=== PATIENT | female | born 1995 | race Caucasian/White ===

== ENCOUNTER 2022-06-18 11:50 | Day surgery (SDC) | payer BC ==
[2022-06-18] MEDS ORDERED: Calcium Gluc 4.6 MEQ/10 ML (100 MG/ML) SLOW IVP PRN (12:39)
[2022-06-18] MEDS ORDERED: Magnesium Sulfate 20 gm/500 ml 20 GM/500 ML BAG IVPB SCH (12:45)
[2022-06-18 13:12] VITALS: BMI 25.4
[2022-06-18 16:01] LABS: SARS-CoV-2 NAA Rapid Test Not Detected (NotDetected)
== END 2022-06-18 17:20 | disposition short-term general hospital (02) ==
LOC: CSHLD/OP 11:50
PROVIDERS: ATTEND Student in an Organized Health Care Education/Training Program
DX: O34.32 Maternal care for cervical incompetence, second trimester (principal); O99.282 Endocrine, nutritional and metabolic diseases complicating pregnancy, second trimester; E03.9 Hypothyroidism, unspecified; O99.342 Other mental disorders complicating pregnancy, second trimester; F41.9 Anxiety disorder, unspecified; Z3A.24 24 weeks gestation of pregnancy; Z79.899 Other long term (current) drug therapy; Z20.822 Contact with and (suspected) exposure to COVID-19
CPT/HCPCS: 36415; 59025; 87081; 96361; 96365; 96366; 99283; J3475; U0002

== ENCOUNTER 2022-09-07 19:33 | Day surgery (SDC) | payer BC ==
[2022-09-07 20:00] VITALS: BMI 29.3
[2022-09-07] MEDS ORDERED: hydrALAZINE 20 MG/ML VIAL SLOW IVP PRN (20:58)
[2022-09-07 21:30] LABS: Bilirubin Neg (Negative); Blood, Urine Negative (Negative); Clarity Clear (Clear); Glucose, Urine (Dipstick) Normal (Negative); Ketone, Urine 15 mg/dL (Negative); Leukocyte 25 (Negative); Nitrite Negative (Negative); Protein, Urine (Dipstick) Negative (Neg-Trace); Urobilinogen Normal mg/dL (Less than 2); pH, Urine 6.5 (5.0-9.0)
[2022-09-07 21:41] LABS: Bacteria/HPF Rare-Few HPF (None Seen); RBC/HPF 0-3 HPF (0-3); Squamous Epithelial 0-3 HPF (0-3); WBC/HPF 0-3 HPF (0-3)
[2022-09-07] MEDS ORDERED: Acetaminophen 500 MG TAB PO SCH (22:30)
== END 2022-09-08 00:05 | disposition home or self-care (01) ==
LOC: CSHLD/OP 19:33
PROVIDERS: ATTEND Student in an Organized Health Care Education/Training Program
DX: O26.893 Other specified pregnancy related conditions, third trimester (principal); R10.2 Pelvic and perineal pain; M54.50 Low back pain, unspecified; O30.043 Twin pregnancy, dichorionic/diamniotic, third trimester; O99.283 Endocrine, nutritional and metabolic diseases complicating pregnancy, third trimester; E03.9 Hypothyroidism, unspecified; O99.343 Other mental disorders complicating pregnancy, third trimester; F41.9 Anxiety disorder, unspecified; Z79.899 Other long term (current) drug therapy; Z3A.36 36 weeks gestation of pregnancy
CPT/HCPCS: 81001; 99284

== ENCOUNTER 2022-09-12 11:47 | Outpatient (CLI) | payer BC | END 2022-09-12 11:48 | disposition home or self-care (01) | LOC: CSHLAB 11:47 | PROVIDERS: ATTEND Student in an Organized Health Care Education/Training Program | DX: Z01.812 Encounter for preprocedural laboratory examination (principal); Z20.822 Contact with and (suspected) exposure to COVID-19 | CPT/HCPCS: 36416; 85014; 85018; 85049; 86780; 86850; 86870; 86900; 86901; 87340; U0002 ==

== ENCOUNTER 2022-09-13 05:18 | Inpatient (IN) | payer BC ==
[2022-09-12 12:37] LABS: Hemoglobin 12.6 g/dL (12.0-15.5); Platelet Count 125 10x3/uL (150-450)
[2022-09-12 13:09] LABS: Syphilis Antibody Nonreactive (Nonreactive); Syphilis Antibody Index 0.03 S/CO (<1.00 Non-Reactive)
[2022-09-12 13:10] LABS: HBSAg Index 0.15 S/CO (0-0.99); Hep B Surf Ag Non-Reactive S/CO (NonReactive)
[2022-09-12 16:49] LABS: SARS-CoV-2 NAA Rapid Test Not Detected (NotDetected)
[2022-09-13] MEDS ORDERED: Ondansetron PF 4 MG/2 ML Vial IVP PRN ×3 (06:40→12:08)
[2022-09-13] MEDS ORDERED: Famotidine/PF 20 mg/2ml Vial SLOW IVP PRN (06:40)
[2022-09-13] MEDS ORDERED: Bicitra 30 ML UDCUP PO PRN (06:40)
[2022-09-13] MEDS ORDERED: CEFAZOLIN 2 GM in Sodium Chloride 0.9% 100 ML IVPB SCH (06:40)
[2022-09-13] MEDS ORDERED: Promethazine HCl 25 MG/ML VIAL IM PRN ×3 (06:40→12:08)
[2022-09-13] MEDS ORDERED: hydrALAZINE 20 MG/ML VIAL SLOW IVP PRN ×2 (06:40→12:08)
[2022-09-13 06:42] VITALS: BMI 30.8
[2022-09-13] MEDS ORDERED: Famotidine/PF 20 mg/2ml Vial ONE (06:57)
[2022-09-13] MEDS ORDERED: CEFAZOLIN 2 GM VIAL ONE (06:57)
[2022-09-13] MEDS ORDERED: ePHEDrine Sulfate 50 MG/10 ML VIAL ONE ×2 (07:11→08:55)
[2022-09-13] MEDS ORDERED: Morphine PF 10 MG/10 ML VIAL ONE (07:11)
[2022-09-13] MEDS ORDERED: Dexamethasone 4 mg/ml Vial ONE (07:12)
[2022-09-13] MEDS ORDERED: Ketorolac Tromethamine 30 MG/ML VIAL ONE (07:12)
[2022-09-13] MEDS ORDERED: PHENYLEPHRINE-NS 100 MCG/ML 10 ML SYRINGE ONE (07:12)
[2022-09-13] MEDS ORDERED: Ondansetron PF 4 MG/2 ML Vial ONE (07:12)
[2022-09-13] MEDS ORDERED: Phenylephrine 10 MG/ML VIAL ONE (07:12)
[2022-09-13] MEDS ORDERED: Glycopyrrolate 0.2 MG/ML 5 ML SYRINGE ONE (07:12)
[2022-09-13] MEDS ORDERED: Oxytocin 10 UNITS/ML VIAL ONE (07:12)
[2022-09-13] MEDS ORDERED: Promethazine HCl 25 MG SUPP PR PRN (07:21)
[2022-09-13] MEDS ORDERED: diphenhydrAMINE 50 MG/ML VIAL IVP PRN (07:21)
[2022-09-13] MEDS ORDERED: Naloxone HCl 0.4 mg/ml Vial IVP PRN ×2 (07:21)
[2022-09-13] MEDS ORDERED: Ondansetron HCl/PF 4 MG/2 ML Vial IVP PRN (07:21)
[2022-09-13] MEDS ORDERED: Naloxone HCl 0.4 mg/ml Vial IV PRN (07:21)
[2022-09-13] MEDS ORDERED: Meperidine HCl/PF 25 MG/ML VIAL SLOW IVP PRN (07:21)
[2022-09-13] MEDS ORDERED: Moisturizing Cream (Eucerin) 113 GM JAR TOP PRN (07:21)
[2022-09-13] MEDS ORDERED: Fentanyl 100 MCG/2 ML VIAL SLOW IVP PRN (07:21)
[2022-09-13] MEDS ORDERED: Ketorolac Tromethamine 30 MG/ML VIAL IVP SCH (07:30)
[2022-09-13] MEDS ORDERED: Communication Order-Pharmacy FS SCH (07:30)
[2022-09-13] MEDS ORDERED: Tranexamic Acid 1,000 MG/10 ML VIAL ONE (09:22)
[2022-09-13] MEDS ORDERED: Misoprostol 200 MCG TAB ONE (09:22)
[2022-09-13] MEDS ORDERED: Methylergonovine 0.2 MG/ML VIAL ONE (09:22)
[2022-09-13] MEDS ORDERED: Methylergonovine 0.2 MG/ML VIAL IM SCH (09:45)
[2022-09-13] MEDS ORDERED: Tranexamic Acid 1,000 MG in Sodium Chloride 0.9% 100 ML IVPB SCH (09:45)
[2022-09-13] MEDS ORDERED: Misoprostol 200 MCG TAB RC SCH (09:45)
[2022-09-13] MEDS ORDERED: diphenhydrAMINE 25 MG CAP PO PRN (12:08)
[2022-09-13] MEDS ORDERED: HYDROcodone/Acetaminophen 5/325 mg Tablet PO PRN (12:08)
[2022-09-13] MEDS ORDERED: Lanolin Ointment 7 GM TUBE TOP PRN (12:08)
[2022-09-13] MEDS ORDERED: Bisacodyl 10 MG SUPP PR PRN (12:08)
[2022-09-13] MEDS ORDERED: Acetaminophen 325 MG TAB PO PRN (12:08)
[2022-09-13] MEDS ORDERED: Boostrix 0.5 ML (Tdap) VIAL (>/=7 yrs of age) IM ONE (12:08)
[2022-09-13] MEDS: Lactated Ringer's 1,000 ML IV SCH ×2 (12:10→15:40)
[2022-09-13] MEDS ORDERED: Prenatal Vitamin 1 TAB PO SCH (13:00)
[2022-09-13] MEDS ORDERED: Docusate 100 MG CAP PO SCH (13:00)
[2022-09-13] MEDS ORDERED: Ferrous Sulfate 325 MG TAB PO SCH (13:00)
[2022-09-13] MEDS: Ketorolac Tromethamine 30 MG/ML VIAL IVP PRN (14:35)
[2022-09-13 18:13] LABS: #Monocytes 0.7 10x3/uL (0.0-1.1); #Neutrophils 11.3 10x3/uL (1.5-8.4); %Basophils 0.1 % (0.0-2.0); %Eosinophils 0.1 % (0.0-6.0); %Lymphocytes 10.8 % (18.0-47.0); %Monocytes 5.1 % (0.0-10.0); Hemoglobin 8.7 g/dL (12.0-15.5); Mean Corpuscular HGB CONC 35.7 g/dL (32.0-36.0); Mean Corpuscular Volume 86.8 fl (81.6-98.3); Mean Platelet Volume 12.4 fl (7.4-10.4); Platelet Count 97 10x3/uL (150-450); RBC Distribution Width 13.9 % (11.5-14.5); Red Blood Cell (RBC) Count 2.81 10x6/uL (3.90-5.03); White Blood Cell (WBC) Count 13.6 10x3/uL (3.5-10.5)
[2022-09-13 18:28] LABS: ALT (SGPT) 11 U/L (8-55); AST (SGOT) 25 U/L (5-34); Albumin 2.6 g/dL (3.5-5.0); Alkaline Phosphatase 119 U/L (40-110); Anion Gap 11 mmol/L (10-20); BUN (Urea Nitrogen) 7 mg/dL (7.0-18.7); Bilirubin, Total 0.2 mg/dL (0.2-1.2); Calc. Creatinine Clearance 161 mL/min (70-130); Carbon Dioxide 22 mmol/L (22-29); Chloride 102 mmol/L (98-107); Estimated GFR 119; Globulin 1.8 g/dL (2.4-3.5); Glucose 119 mg/dL (70-105); Potassium 4.2 mmol/L (3.5-5.1); Protein, Total 4.4 g/dL (6.0-8.3); Sodium 131 mmol/L (136-145)
[2022-09-13 18:41] LABS: Anisocytosis SLIGHT = 6-15 cells (100X) (0-5/hpf); Hypochromia SLIGHT = 6-15 cells (100X) (0-5/hpf); Microcytosis SLIGHT = 6-15 cells (100X) (0-5/hpf); Ovalocytes SLIGHT = 2-5 cells (100X) (0-1/hpf)
[2022-09-13 18:42] LABS: Large Platelets SLIGHT; Platelet Morphology Comment Appears Decreased
[2022-09-13] MEDS: HYDROcodone/Acetaminophen 5/325 mg Tablet PO PRN (22:54)
[2022-09-13] MEDS: Ferrous Sulfate 325 MG TAB PO SCH (22:54)
[2022-09-13] MEDS: Docusate 100 MG CAP PO SCH (22:54)
[2022-09-14] MEDS: Lactated Ringer's 1,000 ML IV SCH ×3 (02:48→14:59)
[2022-09-14] MEDS: Ketorolac Tromethamine 30 MG/ML VIAL IVP PRN (03:54)
[2022-09-14] MEDS: Simethicone Chewable 80 MG TAB PO PRN ×2 (03:55→07:53)
[2022-09-14 05:15] LABS: Hemoglobin 7.6 g/dL (12.0-15.5); Mean Corpuscular HGB CONC 35.3 g/dL (32.0-36.0); Mean Corpuscular Hemoglobin 30.9 pg (27.0-33.0); Mean Corpuscular Volume 87.4 fl (81.6-98.3); Mean Platelet Volume 12.5 fl (7.4-10.4); Platelet Count 92 10x3/uL (150-450); RBC Distribution Width 13.9 % (11.5-14.5); Red Blood Cell (RBC) Count 2.46 10x6/uL (3.90-5.03); White Blood Cell (WBC) Count 8.8 10x3/uL (3.5-10.5)
[2022-09-14] MEDS: Prenatal Vitamin 1 TAB PO SCH (07:53)
[2022-09-14] MEDS: Ferrous Sulfate 325 MG TAB PO SCH ×2 (07:53→21:09)
[2022-09-14] MEDS: Docusate 100 MG CAP PO SCH ×2 (07:53→21:09)
[2022-09-14] MEDS: HYDROcodone/Acetaminophen 5/325 mg Tablet PO PRN ×2 (11:17→18:09)
[2022-09-14] MEDS: Ibuprofen 800 MG TAB PO SCH (22:13)
[2022-09-15] MEDS: Lactated Ringer's 1,000 ML IV SCH ×2 (03:32→06:39)
[2022-09-15] MEDS: Ibuprofen 800 MG TAB PO SCH ×3 (06:38→21:51)
[2022-09-15] MEDS: Ferrous Sulfate 325 MG TAB PO SCH (11:05)
[2022-09-15] MEDS: Prenatal Vitamin 1 TAB PO SCH (11:05)
[2022-09-15] MEDS: Docusate 100 MG CAP PO SCH ×2 (11:05→21:51)
[2022-09-16] MEDS: Ibuprofen 800 MG TAB PO SCH ×2 (05:14→13:51)
[2022-09-16] MEDS: Lactated Ringer's 1,000 ML IV SCH ×2 (06:19→16:27)
[2022-09-16] MEDS: Ferrous Sulfate 325 MG TAB PO SCH ×2 (06:20→16:27)
[2022-09-16 07:27] VITALS: BP 123/81; TEMP 98.3
[2022-09-16] MEDS: Docusate 100 MG CAP PO SCH (16:27)
[2022-09-16] MEDS: Prenatal Vitamin 1 TAB PO SCH (16:27)
[2022-09-18] MEDS ORDERED: Ibuprofen 800 MG TAB PO SCH (14:00)
== END 2022-09-16 17:15 | disposition home or self-care (01) | DRG 787 ==
LOC: CSHLD 05:18 → CSHPP 11:37
PROVIDERS: ADMIT Student in an Organized Health Care Education/Training Program; ATTEND Student in an Organized Health Care Education/Training Program
PROC: 10D00Z1 Extraction of Products of Conception, Low, Open Approach (ICD-10-PCS; principal; 2022-09-13)
PROC: 3E0334Z Introduction of Serum, Toxoid and Vaccine into Peripheral Vein, Percutaneous Approach (ICD-10-PCS; 2022-09-13)
DX: O13.4 Gestational [pregnancy-induced] hypertension without significant proteinuria, complicating childbirth (principal); D62 Acute posthemorrhagic anemia; O30.043 Twin pregnancy, dichorionic/diamniotic, third trimester; O72.1 Other immediate postpartum hemorrhage; O36.5932 Maternal care for other known or suspected poor fetal growth, third trimester, fetus 2; F41.9 Anxiety disorder, unspecified; E03.9 Hypothyroidism, unspecified; O99.344 Other mental disorders complicating childbirth; Z37.2 Twins, both liveborn; Z3A.36 36 weeks gestation of pregnancy; Z79.890 Hormone replacement therapy; Z79.899 Other long term (current) drug therapy; Z98.890 Other specified postprocedural states; Z20.822 Contact with and (suspected) exposure to COVID-19; O26.893 Other specified pregnancy related conditions, third trimester; Z67.31 Type AB blood, Rh negative; O99.284 Endocrine, nutritional and metabolic diseases complicating childbirth; O69.89X0 Labor and delivery complicated by other cord complications, not applicable or unspecified; O90.81 Anemia of the puerperium
CPT/HCPCS: 36415; 36416; 51702; 80053; 82570; 84156; 85014; 85018; 85025; 85027; 85049; 85461; 86780; 86850; 86870; 86900; 86901; 87340; 88307; 90384; 96372; J1100; J1885; J2210; J2274; J2370; J2405; J2550; J2590; J3490; S0028; U0002